=== PATIENT | female | born 1985 | race Caucasian/White ===

== ENCOUNTER 2016-06-14 16:54 | Observation (INO) ==
--- NOTE | 2016-06-14 17:36 | OB/GYN Progress Note ---
Date of Encounter: 06/14/16 Time of Encounter: 17:29 - Assessment and Plan (1) 23 weeks gestation of Current Visit: Yes Status: Acute Admit for observation (2) Left flank pain Current Visit: Yes Status: Acute R/O kidney stones (3) Hematuria Current Visit: Yes Status: Acute r/o kidney stone UTI evaluation Subjective - Subjective Principal diagnosis: Left flank pain, abdominal cramping Interval history: Patient is a 30 y/o female @ 23w2d presents to labor and delivery with c/o lower abdomen and left flank pain. Patient denies any fevers. Patient states she had a cervical length yesterday in her OB's office that was WNL. Patient reports a history of placenta previa. Patient states yesterday previa was resolved. Patient reports +FM, denies LOF or Vaginal bleeding. Patient reports hematuria yesterday. Antepartum ROS: movement normal, no loss of fluid, no vaginal bleeding Objective - Vital Signs Vital Signs: Intake and Output 06/14/16 06/14/16 06/14/16 07:59 15:59 23:59 Other: Weight 94.7 kg Patient Weight 06/14/16 23:59 Weight 94.7 kg - Exam FHR: auscultation normal, category 1 FHR comments: 135 bpm moderate variability Auscultation: bilateral: normal Abdomen: Present: normal appearance, soft, gravid Uterus: Present: normal
[2016-06-14] MEDS: Ringers Solution, Lactated 1,000 ML IVC SCH ×2 (17:42→22:41)
[2016-06-14 19:16] LABS: Bilirubin,Urine Negative (Negative); Blood,Urine Large (Negative); Clarity,Urine Cloudy (Clear); Color,Urine Yellow (Yellow); Glucose,Urine (UA) Normal (Normal); Ketones,Urine 15 mg/dL (Negative); Leukocyte Esterase,Urine Small (Negative); Nitrite,Urine Negative (Negative); Protein,Urine 100 mg/dL (Neg-Trace); Specific Gravity,Urine 1.023 (1.010-1.025); Urobilinogen,Urine Normal (Normal)
[2016-06-14 19:19] LABS: Bacteria,Urine Many per hpf (None-Few); Hyaline Casts,Urine None Seen per lpf (None-Few); Squamous Epithelial Cell,Urine Many per lpf (None-Few)
[2016-06-14] MEDS ORDERED: *HR* HYDROcodone/Acet 5/325 mg TABLET PO PRN (19:25)
[2016-06-14 22:17] LABS: Basophils % 0.1 %; Eosinophils # 0.2 K/mcL (0.0-0.6); Eosinophils % 1.4 %; Hematocrit 36.4 % (35.3-44.9); Hemoglobin 12.2 g/dL (11.5-15.4); Immature Granulocytes % 0.7 % (0-4); Lymphocytes # 1.3 K/mcL (0.6-4.6); Mean Corpuscular HGB Conc 33.5 g/dL (31.6-35.5); Mean Corpuscular Volume 89.7 fL (83.0-100.0); Mean Platelet Volume 11.7 fL (9.4-12.4); Monocytes # 0.9 K/mcL (0.0-1.3); Monocytes % 8.8 %; Platelet Count 261 K/mcL (140-400); Red Blood Count 4.06 M/mcL (3.82-4.97)
[2016-06-14 22:26] LABS: Alanine Aminotransferase 19 Units/L (0-55); Aspartate Amino Transferase 20 Units/L (5-34); BUN/Creatinine Ratio 11 (6-26); Blood Urea Nitrogen 6 mg/dL (7-20); Lactate Dehydrogenase 278 Units/L (159-327); Uric Acid 3.5 mg/dL (2.6-6.0); eGFR For African Americans > 60 (> 60); eGFR For Non-African Americans > 60 (> 60)
[2016-06-14] MEDS ORDERED: *HR* Nalbuphine 20 MG/ML AMPUL IVP PRN (22:26)
--- NOTE | 2016-06-14 22:41 | OB/GYN Progress Note ---
Date of Encounter: 06/14/16 Time of Encounter: 22:39 - Assessment and Plan (1) 23 weeks gestation of Current Visit: Yes Status: Acute Admit for observation (2) Left flank pain Current Visit: Yes Status: Acute R/O kidney stones No stones noted on ultrasound (3) Hematuria Current Visit: Yes Status: Acute r/o kidney stone UTI evaluation +UTI 2 grams Rocephin IV, D/C with RX for Macrobid (4) UTI (urinary tract infection) in in second trimester Current Visit: Yes Status: Acute IV Rocephin RX for macrobid. (5) Asymptomatic hypertension Current Visit: Yes Status: Acute PIH labs ordered. Subjective - Subjective Principal diagnosis: UTI Interval history: Patient reports pain has returned and feels the pain in her back. Patient now has elevated BPs. PIH labs were drawn and sent to lab. Will give Nubain 10mg IVP x1 for pain. [facility] report reviewed. RX given for Macrobid and [place] for 2 [address] Report given to Dr. Gale. Antepartum ROS: movement normal, no loss of fluid, no vaginal bleeding, no contractions Objective - Vital Signs Vital Signs: Intake and Output 06/14/16 06/14/16 06/14/16 07:59 15:59 23:59 Other: Weight 94.7 kg Patient Weight 06/14/16 23:59 Weight 94.7 kg - Exam Abdomen: Present: normal appearance, soft, gravid Uterus: Present: normal, firm - Labs Labs: Abnormal lab results BUN 6 mg/dL (7-20) L 06/14/16 17:36 Creatinine 0.56 mg/dL (0.57-1.11) L 06/14/16 17:36 Ur Specimen Adequacy See below A 06/14/16 18:54 Urine Clarity Cloudy (Clear) A 06/14/16 18:54 Urine Protein 100 mg/dL (Neg-Trace) H 06/14/16 18:54 Urine Ketones 15 mg/dL (Negative) H 06/14/16 18:54 Urine Blood Large (Negative) H 06/14/16 18:54 Ur Leukocyte Esterase Small (Negative) H 06/14/16 18:54 Urine Microscopic RBC 5-15 per hpf (0-3) H 06/14/16 18:54 Urine Microscopic WBC 3-5 per hpf (0-3) H 06/14/16 18:54 Ur Squamous Epith Cells Many per lpf (None-Few) H 06/14/16 18:54 Urine Bacteria Many per hpf (None-Few) H 06/14/16 18:54 Ur Culture Indicated? YES (NO) A 06/14/16 18:54
== END 2016-06-14 23:24 | disposition home or self-care (01) ==
LOC: 1NENULAB
PROVIDERS: ADMIT Obstetrics & Gynecology; ATTEND Obstetrics & Gynecology

== ENCOUNTER 2016-06-16 20:32 | Observation (INO) ==
[2016-06-16 21:37] LABS: Bilirubin,Urine Small (Negative); Blood,Urine Large (Negative); Clarity,Urine Cloudy (Clear); Color,Urine Red (Yellow); Glucose,Urine (UA) Normal (Normal); Ketones,Urine 15 mg/dL (Negative); Leukocyte Esterase,Urine Large (Negative); Nitrite,Urine Positive (Negative); Protein,Urine Trace mg/dL (Neg-Trace); Specific Gravity,Urine 1.016 (1.010-1.025); Urobilinogen,Urine Normal (Normal)
[2016-06-16 21:40] LABS: Bacteria,Urine None Seen per hpf (None-Few); Hyaline Casts,Urine None Seen per lpf (None-Few); Squamous Epithelial Cell,Urine Many per lpf (None-Few); WBC,Urine 15-30 per hpf (0-3)
[2016-06-16] MEDS ORDERED: Ondansetron 4 MG/2 ML VIAL IVP PRN (23:10)
[2016-06-16] MEDS ORDERED: Ringers Solution, Lactated 500 ML IVC ONE ×2 (23:11→23:12)
[2016-06-16] MEDS ORDERED: Ringers Solution, Lactated 1,000 ML IVC SCH (23:30)
--- NOTE | 2016-06-16 23:30 | OB/GYN Progress Note ---
Date of Encounter: 06/16/16 Time of Encounter: 23:22 - Assessment and Plan (1) Nausea Current Visit: Yes Status: Acute zofran prn IVF bolus followed by continuous IVF recommend trying to stay hydrated and anti-nausea medication as needed (2) Round ligament pain Current Visit: Yes Status: Acute flexeril as needed for muscle spasm recommend support belt recommend pelvic floor training (3) 23 weeks gestation of Current Visit: No Status: Acute monitor pt monitoring IVF bolus recommend uterine support belt, trying to maintain hydration, pelvic floor exercise strengthening continue routine care Subjective - Subjective Principal diagnosis: left pelvic pain Interval history: 30 yo F presents c/o left sided pelvic/flank pain. Pain starts at left lumbar area and radiates towards groin. Pt states pain is associated with urinary hesitancy and burning sensation symptoms started Sunday. On Sunday patient presented to L&D with the same symptoms, was given fluid bolus which seemed to improve her symptoms. Sunday she was also worked up for UTI, Hydronephrosis , labs and imaging were negative at that time. Pt states she felt better yesterday and then started having pain again today. She states she is also having some nausea. She denies vision change, CP, SOB. Antepartum ROS: other (left pelvic pain) Objective - Vital Signs Vital Signs: Intake and Output 06/16/16 06/16/16 06/16/16 07:59 15:59 23:59 Other: Weight 92.987 kg Patient Weight 06/16/16 23:59 Weight 92.987 kg - Exam FHR: auscultation normal Abdomen: Present: normal appearance, soft, gravid Uterus: Present: normal - Labs Labs: Abnormal lab results Urine Color Red (Yellow) A 06/16/16 21:15 Urine Clarity Cloudy (Clear) A 06/16/16 21:15 Urine Ketones 15 mg/dL (Negative) H 06/16/16 21:15 Urine Blood Large (Negative) H 06/16/16 21:15 Urine Nitrite Positive (Negative) A 06/16/16 21:15 Urine Bilirubin Small (Negative) H 06/16/16 21:15 Ur Leukocyte Esterase Large (Negative) H 06/16/16 21:15 Urine Microscopic RBC 3-5 per hpf (0-3) H 06/16/16 21:15 Urine Microscopic WBC 15-30 per hpf (0-3) H 06/16/16 21:15 Ur Squamous Epith Cells Many per lpf (None-Few) H 06/16/16 21:15 Ur Culture Indicated? YES (NO) A 06/16/16 21:15
--- NOTE | 2016-06-17 06:03 | OB Labor Progress Note ---
Date of Encounter: 06/17/16 Time of Encounter: 06:02 Labor Progress Note - Subjective Subjective: Pt now reports the pain is 0/10 and feels much better. Thinks the Flexeril and hydration helped. - Heart Tones Heart Tones: 150's - Interventions Interventions: S/p Flexeril x 1 and IVF - Plan Plan: Will d/c home
--- NOTE | 2016-06-17 06:05 | Discharge Summary ---
Outpatient Proc Discharge Plan - Plan Prescriptions: Cyclobenzaprine [Flexeril] 10 mg PO BID PRN #20 tablet PRN Reason: Muscle Spasm Home Medications: Aspirin 81 mg PO DAILY 05/07/16 [History] Loperamide HCl [Imodium A-D] 2 mg PO DAILY 05/07/16 [History] HYDROcodone/Acet 5/325 mg [Henriette 5-325 mg] 1 tab PO Q4H PRN #12 tab 06/14/16 [Rx ] Nitrofurantoin (BID) [Macrobid] 100 mg PO BID #14 capsule 06/14/16 [Rx] Cyclobenzaprine [Flexeril] 10 mg PO BID PRN #20 tablet 06/17/16 [Rx]
== END 2016-06-17 06:10 | disposition home or self-care (01) ==
LOC: 1NENULAB
PROVIDERS: ADMIT Obstetrics & Gynecology; ATTEND Obstetrics & Gynecology

== ENCOUNTER 2016-08-03 19:55 | Observation (INO) ==
[2016-08-03 16:44] LABS: Basophils % 0.1 %; Eosinophils # 0.1 K/mcL (0.0-0.6); Hematocrit 33.4 % (35.3-44.9); Hemoglobin 11.4 g/dL (11.5-15.4); Immature Granulocytes % 0.7 % (0-4); Lymphocytes # 1.4 K/mcL (0.6-4.6); Lymphocytes % 11.5 %; Mean Corpuscular HGB Conc 34.1 g/dL (31.6-35.5); Mean Corpuscular Hemoglobin 29.5 pg (28.0-33.3); Mean Corpuscular Volume 86.5 fL (83.0-100.0); Mean Platelet Volume 10.8 fL (9.4-12.4); Monocytes # 1.1 K/mcL (0.0-1.3); Monocytes % 9.2 %; Neutrophils # 9.1 K/mcL (1.6-8.9); Platelet Count 258 K/mcL (140-400); Red Blood Count 3.86 M/mcL (3.82-4.97); Red Cell Distribution Width 12.9 % (11.5-14.5); Segmented Neutrophils % 77.5 %
[2016-08-03 16:58] LABS: Alanine Aminotransferase 21 Units/L (0-55); Aspartate Amino Transferase 15 Units/L (5-34); BUN/Creatinine Ratio 13 (6-26); Blood Urea Nitrogen 8 mg/dL (7-20); Lactate Dehydrogenase 161 Units/L (159-327); Uric Acid 2.4 mg/dL (2.6-6.0); eGFR For African Americans > 60 (> 60); eGFR For Non-African Americans > 60 (> 60)
--- NOTE | 2016-08-03 17:54 | OB/GYN Progress Note ---
Date of Encounter: 08/03/16 Time of Encounter: 17:37 - Assessment and Plan (1) Headache in , antepartum Current Visit: Yes Status: Acute Obtain PIH labs, Fioricet for headache, if PIH labs negative and headache resolves plan to discharge to home Qualifiers: Trimester: third trimester Qualified Code(s): O26.893 - Other specified related conditions, third trimester; R51 - Headache (2) 30 weeks gestation of Current Visit: Yes Status: Acute (3) NST (non-stress test) reactive Current Visit: Yes Status: Acute baseline 135 Subjective - Subjective Interval history: 30-year-old sent over from the office today with complaints of headache for the last 2 days not relieved by Tylenol, new onset visual disturbances, and elevated blood pressures. In triage, patient's states headache is 6/10, but denies any blurry vision right upper quadrant pain or excessive's edema at this time. Patient reports good movement but denies leaking of fluid or vaginal bleeding or other vaginal discharge. Antepartum ROS: movement normal, contractions (occasional braxon peña at night. ), no loss of fluid, no vaginal bleeding Objective - Vital Signs Vital Signs: Intake and Output 08/03/16 08/03/16 08/03/16 07:59 15:59 23:59 Other: Weight 97.8 kg Patient Weight 08/03/16 23:59 Weight 97.8 kg - Exam FHR: category 1 (baseline 135) Auscultation: bilateral: normal Abdomen: Present: normal appearance, soft, gravid - Labs Labs: Abnormal lab results WBC 11.7 K/mcL (4.3-11.1) H 08/03/16 16:30 Hgb 11.4 g/dL (11.5-15.4) L 08/03/16 16:30 Hct 33.4 % (35.3-44.9) L 08/03/16 16:30 Neutrophils # 9.1 K/mcL (1.6-8.9) H 08/03/16 16:30 Uric Acid 2.4 mg/dL (2.6-6.0) L 08/03/16 16:30
[2016-08-03 18:06] LABS: Protein/Creatinine Ratio,Urine 0.31 mg/mg (0-0.20)
--- NOTE | 2016-08-03 19:25 | OB/GYN History & Physical ---
Date of Encounter: 08/03/16 Time of Encounter: 19:20 Assessment and Plan (1) Headache in , antepartum Current visit: Yes Status: Acute PIH labs were normal except with the exception of the P/C urine ratio was 0.31. Discussed patient with Dr. Baumann decision made to admit for observation for collection of 24-hour urine due to elevated diastolic pressures, P/c ratio and elevated diastolic pressures ranging from 85-90 Admit to unit for observation Regular diet encourage increased by mouth fluid intake Collect 24-hour urine Tylenol and Fioricet for headache pain management Every shift NST Every 4 hours vitals and neuro checks Ambien for sleep as needed Qualifiers: Trimester: third trimester Qualified Code(s): O26.893 - Other specified related conditions, third trimester; R51 - Headache (2) 30 weeks gestation of Current visit: Yes Status: Acute (3) NST (non-stress test) reactive Current visit: Yes Status: Acute History of Present Illness HPI: Ms. Berg is a 30 year old female sent over from the office today with complaints of headache for the last 2 days not relieved by Tylenol, new onset visual disturbances, and elevated blood pressures. In triage, patient's states headache is 6/10, but denies any blurry vision right upper quadrant pain or increase in edema at this time. Patient reports good movement but denies leaking of fluid or vaginal bleeding or other vaginal discharge. complicated by earlier placenta previa which is now resolved, elevated 1 hour GTT but normal three-hour glucose test and MTHFR. Fioricet given to patient in triage earlier has reduce headache to 3/10. Labs: O-, All PIH was negative with the exception of P\C ratio was 0.31 Past Med Surg Social Fam HX - Past Medical History Medical history: no medical history Psychiatric history: no psych history - Past Surgical History Surgical History: appendectomy, cholecystectomy - Social History Smoking Status: Never smoker Smokeless Tobacco Status: No Alcohol use: none Drug use: none - Family History Father Adopted: No Family Member Ethnicity: Non- Living Status: Still Living Hx Family Cardiac Disorders: No Hx Family Respiratory Disorders: No Hx Family Cancer: No Hx Family GI Disorders: No Hx Family Genitourinary Disorders: No Hx Family Endocrine Disorder: No Hx Family Musculoskeletal Disorders: No Hx Family Neuromuscular Disorders: No Hx Family Neurologic Disorders: No Hx Family HEENT Disorders: No Hx Family Autoimmune Disorders: No Hx Family Reproductive Disorders: No Hx Family Psychosocial Disorders: No Hx Family Medical Disorders: No Obstetrical History - Pregnancies : 6 Para: 2 Term: 2 : 0 Ab's: 3 Livin Medications and Allergies Aspirin 81 mg PO DAILY 05/07/16 [History] Loperamide HCl [Imodium A-D] 2 mg PO DAILY 05/07/16 [History] Allergies No Known Allergies Allergy (Verified 05/07/16 15:43) Review of System OB All systems PM: reviewed and no additional remarkable complaints except as stated Exam - Constitutional Constitutional: well developed, well nourished, no acute distress - Neck Neck exam: full ROM - Lungs Respiratory exam: CTAB - Cardiovascular Cardiovascular exam: RRR, +S1, +S2 - Breasts Breast: bilateral: normal - Abdomen Abdomen: Present: bowel sounds normal, gravid, non tender - Extremities Extremities exam: normal capillary refill, normal inspection Deep Tendon Reflex Grade: 2+ Normal Results Result Diagrams: 08/03/16 16:30 08/03/16 16:30 Abnormal lab results WBC 11.7 K/mcL (4.3-11.1) H 08/03/16 16:30 Hgb 11.4 g/dL (11.5-15.4) L 08/03/16 16:30 Hct 33.4 % (35.3-44.9) L 08/03/16 16:30 Neutrophils # 9.1 K/mcL (1.6-8.9) H 08/03/16 16:30 Uric Acid 2.4 mg/dL (2.6-6.0) L 08/03/16 16:30 Protein/Creatinin Ratio 0.31 mg/mg (0-0.20) H 08/03/16 17:50 Urine Total Protein 38 mg/dL (1-14) H 08/03/16 17:50 All other labs normal. - VTE Reasons for not Prescribing Prophylaxis: Treatment not Indicated - Low risk for VTE
[~2016-08-03 19:55] MED LIST: Acetaminophen 325 MG TABLET PO PRN; Acetaminophen/Butalbital/CaffeineTABLET PO PRN
[2016-08-03] MEDS: Acetaminophen/Butalbital/CaffeineTABLET PO PRN (20:38)
[2016-08-04] MEDS ORDERED: Aspirin 81 MG TAB.CHEW PO SCH (09:00)
[2016-08-04] MEDS ORDERED: Ondansetron ODT 4 MG TAB.RAPDIS SL PRN (09:04)
[2016-08-04] MEDS: Acetaminophen/Butalbital/CaffeineTABLET PO PRN (15:01)
[2016-08-04 15:41] VITALS: BP 130/85
--- NOTE | 2016-08-04 17:31 | Discharge Summary ---
Date of Encounter: 08/04/16 Time of Encounter: 17:31 - Discharge Diagnosis (1) Proteinuria affecting in third trimester Priority: Primary Status: Acute Comments: 24 hour urine collected after having and elevated random P/C ratio (2) Hypertension affecting in third trimester Priority: Secondary Status: Acute Comments: BP's WNL without medication Patient to follow up in office next week (3) 30 weeks gestation of Priority: Secondary Status: Acute Comments: admitted for observation (4) Headache in , antepartum Priority: Secondary Status: Acute Comments: headache relieved with Fioricet Qualifiers: Trimester: third trimester Qualified Code(s): O26.893 - Other specified related conditions, third trimester; R51 - Headache (5) NST (non-stress test) reactive Priority: Secondary Status: Acute Comments: RNST baseline 145bpm moderate variability +15x15 accels no decels noted. - Discharge Medications Prescriptions: Acetaminophen/Butalbital/Caffe [Fioricet] 1 each PO Q6HR PRN #30 tablet PRN Reason: Headache Zolpidem [Ambien] 10 mg PO HS PRN #30 tablet PRN Reason: Insomnia Home Medications: Aspirin 81 mg PO DAILY 05/07/16 [History] Loperamide HCl [Imodium A-D] 2 mg PO DAILY 05/07/16 [History] Acetaminophen/Butalbital/Caffe [Fioricet] 1 each PO Q6HR PRN #30 tablet [Rx] Zolpidem [Ambien] 10 mg PO HS PRN #30 tablet 08/04/16 [Rx] Allergies/Adverse Reactions: Allergies No Known Allergies Allergy (Verified 05/07/16 15:43) Data Procedures and tests throughout hospitalization: Laboratory Tests 08/03/16 08/03/16 08/03/16 16:30 16:30 17:50 WBC 11.7 H RBC 3.86 Hgb 11.4 L Hct 33.4 L MCV 86.5 MCH 29.5 MCHC 34.1 RDW 12.9 Plt Count 258 MPV 10.8 Immature Gran % 0.7 Seg Neutrophils % 77.5 Lymphocytes % 11.5 Monocytes % 9.2 Eosinophils % 1.0 Basophils % 0.1 Neutrophils # 9.1 H Lymphocytes # 1.4 Monocytes # 1.1 Eosinophils # 0.1 Basophils # 0.0 BUN 8 Creatinine 0.60 Est GFR ( Amer) > 60 Est GFR (Non-Af Amer) > 60 BUN/Creatinine Ratio 13 Uric Acid 2.4 L AST 15 ALT 21 Lactate Dehydrogenase 161 Urine Creatinine 123 Protein/Creatinin Ratio 0.31 H Urine Total Protein 38 H Labs on day of discharge: Labs from last 24 hours 08/03/16 17:50 Urine Creatinine 123 Protein/Creatinin Ratio 0.31 H Urine Total Protein 38 H Date of admission: 08/03/16 16:15 Primary care physician: Heather Simms Discharging clinician: Maddi Amaro Anticipated date of discharge: 08/04/16 - Patient Status Disposition: Home, Self-Care Condition: Good Functional capacity at discharge: independent ambulation - Discharge Instructions Follow Up With: Heather Calles MD [Primary Care Provider] - Maddi Amaro CNM [Non-Partnered Physician] - - Diet and Activity Activity: increase activity as tolerated Diet: regular diet Hospital Course [employer]MI[employer] Hospital course: Patient was admitted for OBservation at 30w3d for elevated BP, proteinuria in and headache. Patient completed and 24 hour urine and BP's are WNL. NSTs were reactive and patient will follow up in 1 week in OB office. Patient educated on signs and symptoms of PIH and what to report to provider. Time Attestation: Total time spent providing and/or coordinating discharge services: Time Spent: Less than 30 minutes Exam - Constitutional Vitals: Temp Pulse Resp BP Pulse Ox 97.9 F 85 18 130/85 98 08/04/16 15:40 08/04/16 15:40 08/04/16 15:40 08/04/16 15:40 08/04/16 12:17 General appearance IM: A&O X 3, pleasant, answers questions appropriately - Respiratory Respiratory exam: Present: CTAB - Cardiovascular Cardiovascular exam IM: Present: RRR, +S1, +S2 - GI/Abdominal GI/Abdominal exam IM: normal bowel sounds - Extremities Exam Extremities exam IM: Present: full ROM, normal capillary refill, normal inspection - Neurological Exam Neurological exam: alert, oriented X3, reflexes normal - Other Additional findings: NST reactive. FHR 145 bpm baseline, +15x15 accels no decels noted. CAt. 1 tracing. No contractions - VTE Reasons for not Prescribing Prophylaxis: Treatment not Indicated - Low risk for VTE Documentation of Mechanical Device: Intermittent pneumatic compression device
[2016-08-04 17:48] LABS: Total Volume 24 Hour,Urine 1.45 Liters (0.60-1.60)
[2016-08-04 18:01] LABS: Creatinine 24 Hour,Urine 1.25 g/day (0.71-1.65); Protein/Creatinine Ratio,Urine 0.17 mg/mg (0-0.20)
== END 2016-08-04 17:15 | disposition home or self-care (01) ==
LOC: 1NENULAB → 1NENUOBS 19:55

== ENCOUNTER → 2016-08-10 18:50 | Observation (INO) ==
[2016-08-10 16:48] LABS: Basophils % 0.1 %; Eosinophils # 0.1 K/mcL (0.0-0.6); Eosinophils % 0.6 %; Hematocrit 37.4 % (35.3-44.9); Hemoglobin 12.7 g/dL (11.5-15.4); Immature Granulocytes % 0.6 % (0-4); Immature Platelets 8.3 % (1.1-6.1); Lymphocytes # 0.9 K/mcL (0.6-4.6); Lymphocytes % 9.1 %; Mean Corpuscular Hemoglobin 28.7 pg (28.0-33.3); Mean Corpuscular Volume 84.6 fL (83.0-100.0); Monocytes # 1.2 K/mcL (0.0-1.3); Monocytes % 11.8 %; Neutrophils # 7.9 K/mcL (1.6-8.9); Platelet Count 284 K/mcL (140-400); Red Blood Count 4.42 M/mcL (3.82-4.97); Red Cell Distribution Width 13.1 % (11.5-14.5); Segmented Neutrophils % 77.8 %
[2016-08-10 17:00] LABS: Alanine Aminotransferase 29 Units/L (0-55); Aspartate Amino Transferase 20 Units/L (5-34); BUN/Creatinine Ratio 16 (6-26); Blood Urea Nitrogen 12 mg/dL (7-20); Lactate Dehydrogenase 187 Units/L (159-327); Uric Acid 4.6 mg/dL (2.6-6.0); eGFR For African Americans > 60 (> 60); eGFR For Non-African Americans > 60 (> 60)
--- NOTE | 2016-08-10 18:06 | Discharge Summary ---
Date of Encounter: 08/10/16 Time of Encounter: 18:06 - Discharge Diagnosis (1) Hypertension affecting in third trimester Priority: Primary Status: Acute Comments: PIH evaluation WNL Patient scheduled to follow up in office 1 week (2) NST (non-stress test) reactive Priority: Secondary Status: Acute Comments: baseline 135 bpm moderate variability +15x15 accels no decels noted. - Discharge Medications Home Medications: Aspirin 81 mg PO DAILY 05/07/16 [History] Loperamide HCl [Imodium A-D] 2 mg PO DAILY 05/07/16 [History] Acetaminophen/Butalbital/Caffe [Fioricet] 1 each PO Q6HR PRN #30 tablet [Rx] Zolpidem [Ambien] 10 mg PO HS PRN #30 tablet 08/04/16 [Rx] Allergies/Adverse Reactions: Allergies No Known Allergies Allergy (Verified 05/07/16 15:43) Data Procedures and tests throughout hospitalization: Laboratory Tests 08/10/16 08/10/16 16:33 16:33 WBC 10.2 RBC 4.42 Hgb 12.7 Hct 37.4 MCV 84.6 MCH 28.7 MCHC 34.0 RDW 13.1 Plt Count 284 MPV 11.0 Immature Gran % 0.6 Seg Neutrophils % 77.8 Lymphocytes % 9.1 Monocytes % 11.8 Eosinophils % 0.6 Basophils % 0.1 Neutrophils # 7.9 Lymphocytes # 0.9 Monocytes # 1.2 Eosinophils # 0.1 Basophils # 0.0 Immature Plt Fraction 8.3 H BUN 12 Creatinine 0.74 Est GFR ( Amer) > 60 Est GFR (Non-Af Amer) > 60 BUN/Creatinine Ratio 16 Uric Acid 4.6 AST 20 ALT 29 Lactate Dehydrogenase 187 Labs on day of discharge: Labs from last 24 hours 08/10/16 08/10/16 16:33 16:33 WBC 10.2 RBC 4.42 Hgb 12.7 Hct 37.4 MCV 84.6 MCH 28.7 MCHC 34.0 RDW 13.1 Plt Count 284 MPV 11.0 Immature Gran % 0.6 Seg Neutrophils % 77.8 Lymphocytes % 9.1 Monocytes % 11.8 Eosinophils % 0.6 Basophils % 0.1 Neutrophils # 7.9 Lymphocytes # 0.9 Monocytes # 1.2 Eosinophils # 0.1 Basophils # 0.0 Immature Plt Fraction 8.3 H BUN 12 Creatinine 0.74 Est GFR ( Amer) > 60 Est GFR (Non-Af Amer) > 60 BUN/Creatinine Ratio 16 Uric Acid 4.6 AST 20 ALT 29 Lactate Dehydrogenase 187 Date of admission: 08/10/16 16:15 Primary care physician: Heather Simms Discharging clinician: Maddi Amaro Anticipated date of discharge: 08/10/16 - Patient Status Disposition: Home, Self-Care Condition: Good Functional capacity at discharge: independent ambulation - Discharge Instructions Follow Up With: Heather Calles MD [Primary Care Provider] - Maddi Amaro CNM [Non-Partnered Physician] - - Diet and Activity Activity: increase activity as tolerated Diet: regular diet Hospital Course [employer] Hospital course: Patient is 30 y/o @ 31w3d sent from OB office for PIH evaluation for elevated BP. PIH labs WNL, 2+DTRs no clonus. Patient denies Headache but reports visual disturbances after vomiting. BPs in L&D are WNL. Time Attestation: Total time spent providing and/or coordinating discharge services: Time Spent: Less than 30 minutes Exam - Constitutional General appearance IM: A&O X 3, pleasant, answers questions appropriately - Respiratory Respiratory exam: Present: CTAB - Cardiovascular Cardiovascular exam IM: Present: RRR, +S1, +S2 - GI/Abdominal GI/Abdominal exam IM: normal bowel sounds - Neurological Exam Neurological exam: alert, oriented X3, reflexes normal - Other Additional findings: FHR 135 bpm moderate variability +15x15 accels no decels noted. No contractions. RNST. Cat 1 tracing. - VTE Reasons for not Prescribing Prophylaxis: Treatment not Indicated - Low risk for VTE
[~2016-08-10 18:50] MED LIST changes: -Acetaminophen 325 MG TABLET PO PRN; -Acetaminophen/Butalbital/CaffeineTABLET PO PRN; +D5% in 0.45% NACL 1,000 ML IVC SCH
== END | disposition home or self-care (01) ==
LOC: 1NENULAB
PROVIDERS: ADMIT Advanced Practice Midwife

== ENCOUNTER → 2016-09-14 19:26 | Observation (INO) ==
[2016-09-14 17:07] LABS: Basophils % 0.2 %; Eosinophils # 0.1 K/mcL (0.0-0.6); Eosinophils % 0.8 %; Hematocrit 32.6 % (35.3-44.9); Hemoglobin 10.8 g/dL (11.5-15.4); Immature Granulocytes % 0.5 % (0-4); Lymphocytes # 1.2 K/mcL (0.6-4.6); Lymphocytes % 10.8 %; Mean Corpuscular HGB Conc 33.1 g/dL (31.6-35.5); Mean Corpuscular Hemoglobin 27.4 pg (28.0-33.3); Mean Corpuscular Volume 82.7 fL (83.0-100.0); Mean Platelet Volume 11.5 fL (9.4-12.4); Monocytes # 0.9 K/mcL (0.0-1.3); Monocytes % 8.2 %; Neutrophils # 8.7 K/mcL (1.6-8.9); Platelet Count 249 K/mcL (140-400); Red Blood Count 3.94 M/mcL (3.82-4.97); Red Cell Distribution Width 13.2 % (11.5-14.5); Segmented Neutrophils % 79.5 %
[2016-09-14 17:43] LABS: Protein/Creatinine Ratio,Urine 0.14 mg/mg (0-0.20)
[2016-09-14 17:45] LABS: Alanine Aminotransferase 20 Units/L (0-55); Aspartate Amino Transferase 15 Units/L (5-34); BUN/Creatinine Ratio 12 (6-26); Blood Urea Nitrogen 7 mg/dL (7-20); Lactate Dehydrogenase 181 Units/L (159-327); Uric Acid 3.6 mg/dL (2.6-6.0); eGFR For African Americans > 60 (> 60); eGFR For Non-African Americans > 60 (> 60)
--- NOTE | 2016-09-14 19:05 | Discharge Summary ---
Date of Encounter: 09/14/16 Time of Encounter: 19:06 - Discharge Diagnosis (1) 36 weeks gestation of Priority: Secondary Status: Acute Comments: Patient arrives to labor and delivery triage for a PI evaluation. She had increased blood pressure and trace protein in her urine at the office. She states positive movement and denies headache, epigastric pain, and vision changes. She notes that her blood pressure has been increasing to 140's/90's in the afternoon daily and that she has a headache when this occurs. PI labs sent; WNL Serial blood pressures; Elevated blood pressure noted at 140's/low 100's. One dose of IV labetalol given. Blood pressure responded well to normal limits. Increase labetalol from 100mg BID to 100mg TID. Discharge home with blood pressure monitoring, change in labetalol frequency, labor precautions, hypertension precautions, and kick counts. Follow up in office on Sunday for NST. (2) Hypertension affecting in third trimester Priority: Primary Status: Acute Comments: [facility] labs sent; WNL Serial blood pressures; Elevated blood pressure noted at 140's/low 100's. One dose of IV labetalol given. Blood pressure responded well to normal limits. Increase labetalol from 100mg BID to 100mg TID. Discharge home with blood pressure monitoring, change in labetalol frequency, labor precautions, hypertension precautions, and kick counts. Follow up in office on Sunday for NST. (3) NST (non-stress test) reactive Priority: Secondary Status: Acute Comments: baseline 120 category I 15x15 accels - Discharge Medications Prescriptions: Labetalol [Trandate] 100 mg PO TID #90 tablet Home Medications: Aspirin 81 mg PO DAILY 05/07/16 [History] Acetaminophen/Butalbital/Caffe [Fioricet] 1 each PO Q6HR PRN #30 tablet [Rx] Zolpidem [Ambien] 10 mg PO HS PRN #30 tablet 08/04/16 [Rx] Labetalol [Trandate] 100 mg PO TID #90 tablet 09/14/16 [Rx] Allergies/Adverse Reactions: Allergies No Known Allergies Allergy (Verified 05/07/16 15:43) Data Procedures and tests throughout hospitalization: Laboratory Tests 09/14/16 09/14/16 09/14/16 16:25 16:25 17:20 WBC 11.0 RBC 3.94 Hgb 10.8 L Hct 32.6 L MCV 82.7 L MCH 27.4 L MCHC 33.1 RDW 13.2 Plt Count 249 MPV 11.5 Immature Gran % 0.5 Seg Neutrophils % 79.5 Lymphocytes % 10.8 Monocytes % 8.2 Eosinophils % 0.8 Basophils % 0.2 Neutrophils # 8.7 Lymphocytes # 1.2 Monocytes # 0.9 Eosinophils # 0.1 Basophils # 0.0 BUN 7 Creatinine 0.59 Est GFR ( Amer) > 60 Est GFR (Non-Af Amer) > 60 BUN/Creatinine Ratio 12 Uric Acid 3.6 AST 15 ALT 20 Lactate Dehydrogenase 181 Urine Creatinine 115 Protein/Creatinin Ratio 0.14 Urine Total Protein 16 H Labs on day of discharge: Labs from last 24 hours 09/14/16 09/14/16 09/14/16 17:20 16:25 16:25 WBC 11.0 RBC 3.94 Hgb 10.8 L Hct 32.6 L MCV 82.7 L MCH 27.4 L MCHC 33.1 RDW 13.2 Plt Count 249 MPV 11.5 Immature Gran % 0.5 Seg Neutrophils % 79.5 Lymphocytes % 10.8 Monocytes % 8.2 Eosinophils % 0.8 Basophils % 0.2 Neutrophils # 8.7 Lymphocytes # 1.2 Monocytes # 0.9 Eosinophils # 0.1 Basophils # 0.0 BUN 7 Creatinine 0.59 Est GFR ( Amer) > 60 Est GFR (Non-Af Amer) > 60 BUN/Creatinine Ratio 12 Uric Acid 3.6 AST 15 ALT 20 Lactate Dehydrogenase 181 Urine Creatinine 115 Protein/Creatinin Ratio 0.14 Urine Total Protein 16 H Date of admission: 09/14/16 15:55 Primary care physician: Heather Simms Discharging clinician: Ratna Chowdhury Anticipated date of discharge: 09/14/16 - Patient Status Disposition: Home, Self-Care Condition: Good Functional capacity at discharge: independent ambulation Overall status at discharge: patient is back to baseline - Discharge Instructions Follow Up With: Heather Calles MD [Primary Care Provider] - Monik Hayes CNM [Non-Partnered Physician] - Additional Instructions: LABOR AND DELIVERY DISCHARGE INSTRUCTIONS Signs and Symptoms to be Reported to your Doctor Immediately: * Sudden gush, continuous or intermittent lead of fluid from vagina (note the time of gush and color of fluid) * Onset of bright red vaginal bleeding with or without pain (if you had a vaginal exam during this visit you may notice some dark red spotting. This is normal.) * Lower abdominal cramping or backache that is premenstrual-like feeling. * More than 6 contractions in one hour. * Burning during urination, having to urinate more frequently or pain in your mid-back. * A change in the baby's activity. This could be an increase or decrease in activity. * Severe headache which does not go away with tylenol. * Sudden swelling in the face, hands, arms and/or legs. * Upper abdominal pain - sometimes associated with heartburn or nausea and is not relieved by Maalox, Mylanta or Tums. * Dizziness or blurred vision or visual disturbances (seeing stars/lights). * Kick Counts One hour after a meal, lay down on one side in a quiet place. Count the number of ronald the baby moves during an hour. If less than 6 movements, notify your physician. Diet: *Force fluids - 8-10 tall glasses of fluid per day. May include popsicles and jello. *Limit caffeine - this includes chocolate, coffee, tea, any soft drink containing such as all richar, Gabe Yellow and Mountain Dew - Diet and Activity Activity: resume usual activities as tolerated Diet: regular diet Hospital Course [employer] Time Attestation: Total time spent providing and/or coordinating discharge services: Time Spent: Less than 30 minutes Exam - Constitutional General appearance IM: cooperative, A&O X 3, pleasant - Respiratory Respiratory exam: Present: CTAB - Cardiovascular Cardiovascular exam IM: Present: RRR, +S1, +S2 - GI/Abdominal GI/Abdominal exam IM: normal bowel sounds, soft - Additional comments: Gravid uterus soft no contractions per TOCO or palpation FHTs 120's with moderate variability with 15x15 accels no decels TOCO no contractions NST reactive; category I tracing - Extremities Exam Extremities exam IM: Present: normal capillary refill, normal inspection, radial pulses palpable and symetrical - Neurological Exam Neurological exam: alert, oriented X3 - VTE Reasons for not Prescribing Prophylaxis: Treatment not Indicated - Low risk for VTE
[~2016-09-14 19:26] MED LIST changes: +*HR* Labetalol 20 MG/4 ML SYRINGE IVP ONE; -D5% in 0.45% NACL 1,000 ML IVC SCH
== END | disposition home or self-care (01) ==
LOC: 1NENULAB
PROVIDERS: ADMIT Advanced Practice Midwife

== ENCOUNTER 2016-09-25 22:09 | Inpatient (IN) ==
[~2016-09-25 22:09] MED LIST changes: -*HR* Labetalol 20 MG/4 ML SYRINGE IVP ONE; +Famotidine 20 MG/2 ML VIAL IVP PRN; +Naloxone 0.4 MG/ML INJ IVP PRN; +Ondansetron 4 MG/2 ML VIAL IVP PRN
[2016-09-25] MEDS ORDERED: Ringers Solution, Lactated 1,000 ML IVC SCH (22:15)
--- NOTE | 2016-09-25 22:22 | OB/GYN History & Physical ---
Date of Encounter: 09/25/16 Time of Encounter: 22:14 Assessment and Plan (1) 38 weeks gestation of Current visit: Yes Status: Acute Patient admitted for delivery (2) Spontaneous rupture of membranes Current visit: Yes Status: Acute Admitted for delivery (3) Heterozygous MTHFR mutation [id number] Current visit: Yes Status: Acute (4) Hypertension affecting in third trimester Current visit: No Status: Acute PIH labs Serial BP's History of Present Illness Chief complaint: SROM HPI: Ms. Berg is a 31 year old female is a at 38 weeks gestational age presents to labor and delivery with c/o spontaneous rupture of membranes at 1845. Patient reports clear fluid without odor. Patient denies feeling contractions or vaginal bleeding. Patient reports +FM. Blood type: O Negative and GBS: Negative. Past Med Surg Social Fam HX - Past Medical History Source: patient Medical history: no medical history Psychiatric history: no psych history - Past Surgical History Surgical History: appendectomy, cholecystectomy - Social History Smoking Status: Never smoker Smokeless Tobacco Status: No Alcohol use: none Drug use: none Occupational status: employed Current living situation: Home - Independent Activity Level: Independent ambulation Recent Out of Country Travel Within the Last 8 Weeks: No Exposure or Possible Exposure to Illness During Travel: No - Family History Father Adopted: No Family Member Ethnicity: Non- Living Status: Still Living Hx Family Cardiac Disorders: Yes Hx Family Respiratory Disorders: No Hx Family Cancer: No Hx Family GI Disorders: No Hx Family Endocrine Disorder: No Hx Family Neuromuscular Disorders: No Hx Family Neurologic Disorders: No Hx Family HEENT Disorders: No Hx Family Autoimmune Disorders: No Obstetrical History - Pregnancies : 6 Para: 2 Term: 2 : 0 Ab's: 3 Livin - History/Complications History/Complications: Gestational hypertension with current on 100mg labetalol TID MTHFR Medications and Allergies Aspirin 81 mg PO DAILY 05/07/16 [History] Acetaminophen/Butalbital/Caffe [Fioricet] 1 each PO Q6HR PRN #30 tablet [Rx] Zolpidem [Ambien] 10 mg PO HS PRN #30 tablet 08/04/16 [Rx] Labetalol [Trandate] 100 mg PO TID #90 tablet 09/14/16 [Rx] Allergies No Known Allergies Allergy (Verified 01/08/17 15:43) Review of System OB - Constitutional Constitutional ROS IM: headache(s) (slight headache today), no chills, no fever( s) - Cardiovascular Cardiovascular: pedal edema, no chest pain, no dyspnea, no palpitations - Respiratory Respiratory: no cough, no dyspnea - Gastrointestinal Gastrointestinal: cramping, no constipation, no diarrhea, no heartburn, no nausea, no vomiting - Genitourinary Genitourinary: vaginal discharge, no abnormal vaginal bleeding, no dysuria, no flank pain, no urinary frequency, no urinary incontinence, no vaginal odor Exam - Constitutional Constitutional: well developed, well nourished, no acute distress, average body habitus - HEENT HEENT: Normocephaly, Mucus Membranes Moist - Neck Neck exam: full ROM, supple - Lungs Respiratory exam: CTAB - Cardiovascular Cardiovascular exam: RRR, +S1, +S2 - Abdomen Abdomen: Present: bowel sounds normal, gravid, non tender - Extremities Extremities exam: calf tenderness, full ROM, normal inspection, pedal edema (1+ bilateral feet) Deep Tendon Reflex Grade: 2+ Normal - Vagina Vagina: Present: normal moisture - Cervix Dilation: 3 Effacement: 80 Station: -1 - Uterus Uterus exam: Present: normal size, normal contour - Anus/Rectum Anus/Rectum: Present: normal perianal skin - Comments Comments: FHR 145 bpm moderate variability +15x15 accels no decels noted. One contraction noted. Cat. 1 tracing. Results All other labs normal. - VTE Reasons for not Prescribing Prophylaxis: Treatment not Indicated - Low risk for VTE
[2016-09-25] MEDS ORDERED: miSOPROStol 100 MCG TABLET PO SCH (22:30)
[2016-09-25 22:51] LABS: Basophils % 0.1 %; Eosinophils # 0.1 K/mcL (0.0-0.6); Eosinophils % 0.8 %; Hematocrit 32.6 % (35.3-44.9); Hemoglobin 10.7 g/dL (11.5-15.4); Immature Granulocytes % 0.6 % (0-4); Immature Platelets 6.3 % (1.1-6.1); Lymphocytes # 1.4 K/mcL (0.6-4.6); Lymphocytes % 12.3 %; Mean Corpuscular HGB Conc 32.8 g/dL (31.6-35.5); Mean Corpuscular Hemoglobin 26.9 pg (28.0-33.3); Mean Corpuscular Volume 81.9 fL (83.0-100.0); Mean Platelet Volume 11.2 fL (9.4-12.4); Monocytes % 8.9 %; Neutrophils # 8.7 K/mcL (1.6-8.9); Platelet Count 292 K/mcL (140-400); Red Blood Count 3.98 M/mcL (3.82-4.97); Red Cell Distribution Width 13.3 % (11.5-14.5); Segmented Neutrophils % 77.3 %
[2016-09-25 23:07] LABS: Alanine Aminotransferase 17 Units/L (0-55); Aspartate Amino Transferase 15 Units/L (5-34); BUN/Creatinine Ratio 15 (6-26); Blood Urea Nitrogen 9 mg/dL (7-20); Lactate Dehydrogenase 164 Units/L (159-327); Uric Acid 3.1 mg/dL (2.6-6.0); eGFR For African Americans > 60 (> 60); eGFR For Non-African Americans > 60 (> 60)
[2016-09-26] MEDS ORDERED: *HR* Nalbuphine 20 MG/ML AMPUL IVP PRN (00:12)
--- NOTE | 2016-09-26 00:12 | OB Labor Progress Note ---
Date of Encounter: 09/26/16 Time of Encounter: 00:09 Labor Progress Note - Subjective Subjective: Patient resting in bed. Denies any pain at this time. Patient reports still leaking clear fluid and +FM. - Cervix Cervix: 3/80/-1 - Heart Tones Heart Tones: 120 bpm moderate variability +15x15 accels no decels noted. - [place]: irregular - Interventions Interventions: SVE - Plan Plan: Continue labor management Cytotec 50mcg po x1 only Dr. Baumann notified of patient's status Patient may have nubain or epidural if desires
[2016-09-26] MEDS ORDERED: *HR* FentaNYL (PF) 100 MCG/2 ML VIAL EP ONE (01:20)
[2016-09-26] MEDS ORDERED: EPHEDrine 50 MG/ML VIAL IVP PRN (01:20)
[2016-09-26] MEDS ORDERED: Bupivacaine-MPF 0.25% 10 ML VIAL EP ONE (01:20)
[2016-09-26] MEDS ORDERED: Ondansetron 4 MG/2 ML VIAL IVP PRN (01:20)
--- NOTE | 2016-09-26 01:23 | Anesthesia Evaluation PreOp ---
Date of Encounter: 09/26/16 Time of Encounter: 01:21 - Past History Planned Operation: ANNETTA Cardiac History: HTN (takes labatolol) Pulmonary History: Denies Any Significant HX INTRAOPERATIVE NEURO TECH History: Denies Any Significant HX Other Medical History: Bleeding (MTHFR- takes ASA) Anesthesia History: No Prior Anesthetic Complications, Past Anesthesia (Breast reduction, Appendectomy, D&C, cholecystectomy) : Yes Alcohol Use: none Drug use: none Medications and Allergies Labetalol [Trandate] 100 mg PO TID #90 tablet 09/14/16 [Rx] Allergies No Known Allergies Allergy (Verified 09/25/16 22:34) - Meds/Allergy Pre-op Review Medications Reviewed: Yes Allergies Reviewed: Yes Beta Blockers on Current Med List: Yes If Beta Blockers taken, Date/Time (Last Dose taken): 1999, 09/25/16 Anesthesia Results - Labs 09/25/16 22:35 09/25/16 22:35 Anesthesia Exam Vital Signs Pulse Rate 86 09/25/16 22:19 Respiratory Rate 18 09/25/16 22:19 Blood Pressure 137/93 09/25/16 22:19 Pulse Rate 86 09/25/16 22:19 Respiratory Rate 18 09/25/16 22:19 Blood Pressure 137/93 09/25/16 22:19 Height: 5'9" Weight: 97kg NPO (# of Hours): 6 Pain Scale: 8 Pain Scale Used: Numeric (1 - 10) - HEENT Pupil (Motor): Pupils equal Mallampati: II Teeth: Normal Oral Opening: Greater than 3 - INTRAOPERATIVE NEURO TECH INTRAOPERATIVE NEURO TECH Motor: Normal RUE, Normal LUE, Normal RLE, Normal LLE, Normal Face INTRAOPERATIVE NEURO TECH Sensory: Normal: RUE, LUE, RLE, LLE, Face - Cardiac Rhythm: Regular Murmur: None JVD: No Carotid Bruit: No - Pulmonary Breath Sounds: bilateral Clear Respiratory Effort: Symmetrical Anesthesia Assess/Plan ASA Score: 2 Modified [place] Scale for Level of Consciousness: Cooperative, oriented, and tranquil Anesthetic Plan: Regional Autologous Blood: No Monitoring Plan: Standard Monitors Recovery Plan: Other
[2016-09-26] MEDS ORDERED: Epidural Premix (fent/bupiv) 110 ML EP SCH (01:30)
[2016-09-26] MEDS ORDERED: *HR* FentaNYL (PF) 100 MCG/2 ML VIAL ONE (01:32)
[2016-09-26] MEDS ORDERED: Bupivacaine-MPF 0.25% 10 ML VIAL ONE (01:33)
[2016-09-26] MEDS ORDERED: Epidural Premix (fent/bupiv) 110 ML EP ONE (01:33)
--- NOTE | 2016-09-26 02:02 | Anesthesia Procedures ---
Date of Encounter: 09/26/16 Time of Encounter: 01:36 Procedures: Anesthesia - Epidural/Spinal Patient ID/Chart reviewed: Yes Patient examined: Yes OB Eval: Gestational age: 38.1 OB Eval: : 6 OB Eval: Hx Para: 2 OB Eval: Dilated at (cm): 3 OB Eval: Contractions: Non-stressed pattern Consent Obtained: Yes Supplemental Oxygen: None/Room Air Site Prep: Aseptic Technique, Sterile prep and drape, Povidone-Iodine 1% Patient position: upright Local Anesthetic: Lidocaine 1% Amount of Local Anesthetic used: 3 Touhy Needle Gauge: 18 Touhy Needle Depth (cm): 6 Catheter Depth at Skin (cm): 15 Test Dose (1.5% Lido + Epi): Volume given (mls): 3 Test Dose Result: Negative Loading Dose: 0.25% Marcaine (mls): 10 Loading Dose: Fentanyl (mcg): 100 Loading Dose Administered: Thru Catheter Infusion Med: 0.125% Bupivacaine w/ 2 mcg/ml Fentanyl Infusion Rate (mls/hr): [address]: Tegaderm, Tape Interspace Used: L4-L5 Loss of Resistance (UMU): Yes Blood: No CSF: No Paresthesia: No Procedure: ANNETTA placed 1st pass in upright position without any immediate noted complications. VSS throughout. Vitals + FHT's: 0136 BP 133/86 P 88 T98.5 0158 BP 129/81 P 82 FHT 130s
[2016-09-26] MEDS ORDERED: Acetaminophen 325 MG TABLET PO PRN ×2 (03:43→09:50)
[2016-09-26] MEDS ORDERED: Oxytocin 20 units/ LR 1000 mL 20 UNIT/1,000 ML BAG IVC ONE (05:09)
--- NOTE | 2016-09-26 07:03 | OB/GYN Procedure Note ---
Delivery - Delivery Date: 09/26/16 Provider: Maddi Amaro Intrapartum events: none Delivery induction: misoprostol (augmented with PO cytotec) Delivery monitor: external FHT, external uterine Anesthesia: epidural Estimated Blood Loss: 200 - Infant (s) A Infant Delivery Date: 09/26/16 Infant Delivery Time: 06:36 Presentation: vertex Position: CARLYLE Route of delivery: Gender: Female Viability: Viable at 1 minute: 8 at 5 mins: 9 Specimens collected: cord blood Placenta: spontaneous Cord: nuchal cord (x1 loose), 3 umbilical vessels, delivered through nuchal - Repair Episiotomy: none Laceration Description: Perineal - 1st Degree (repaired with 3-0 vicryl) - Complications Delivery complications: none - Disposition Mom disposition: stable in LDR Maxie disposition: stable in LDR - Comments Comments: CNM in room to check on patient. Patient reports low abdominal pain. SVE Complete +2 station. Patient was prepped for delivery. Under maternal effort patient began pushing and spontaneously delivered female CARLYLE. Nuchal x1 loose and reduced. No shoulder dystocia or meconium noted. was placed on maternal abdomen. Cord was clamped and cut after pulsation ceased. A 1st degree perineal laceration noted and was repaired with 3-0 vicryl. Placenta delivered spontaneously and intact. placed skin to skin. Both Mother and infant are stable in recovery. weight was not yet assessed at this time.
[2016-09-26] MEDS ORDERED: Measles/Mumps/Rubella Vacc 0.5 ML VIAL SQ PRN (09:50)
[2016-09-26] MEDS ORDERED: Oxytocin 20 units/ LR 1000 mL 20 UNIT/1,000 ML BAG IVC SCH (09:50)
[2016-09-26] MEDS ORDERED: Benzocaine/Menthol 56 GM AEROSOL SPRAY TP PRN (09:50)
[2016-09-26] MEDS ORDERED: Rho Immune Globulin 1,500 UNIT SYRINGE IM PRN (09:50)
[2016-09-26] MEDS ORDERED: Lanolin 7 G OINT...G. TP PRN (09:50)
[2016-09-26] MEDS ORDERED: *HR* HYDROcodone/Acet 5/325 mg TABLET PO PRN (09:50)
[2016-09-26] MEDS: Prenatal Vit/FA 1 EACH TABLET PO SCH (10:22)
[2016-09-26] MEDS: Ibuprofen 600 MG TABLET PO PRN ×2 (10:29→20:46)
[2016-09-27 04:04] LABS: Basophils % 0.1 %; Eosinophils # 0.1 K/mcL (0.0-0.6); Eosinophils % 1.1 %; Hematocrit 31.9 % (35.3-44.9); Hemoglobin 10.5 g/dL (11.5-15.4); Immature Granulocytes % 0.6 % (0-4); Lymphocytes # 1.6 K/mcL (0.6-4.6); Lymphocytes % 13.1 %; Mean Corpuscular HGB Conc 32.9 g/dL (31.6-35.5); Mean Corpuscular Hemoglobin 27.3 pg (28.0-33.3); Mean Corpuscular Volume 82.9 fL (83.0-100.0); Mean Platelet Volume 11.6 fL (9.4-12.4); Monocytes # 0.9 K/mcL (0.0-1.3); Monocytes % 7.4 %; Neutrophils # 9.3 K/mcL (1.6-8.9); Platelet Count 242 K/mcL (140-400); Red Blood Count 3.85 M/mcL (3.82-4.97); Red Cell Distribution Width 13.4 % (11.5-14.5); Segmented Neutrophils % 77.7 %
[2016-09-27 04:19] LABS: Alanine Aminotransferase 16 Units/L (0-55); Aspartate Amino Transferase 16 Units/L (5-34); BUN/Creatinine Ratio 8 (6-26); Lactate Dehydrogenase 199 Units/L (159-327); Uric Acid 3.2 mg/dL (2.6-6.0); eGFR For African Americans > 60 (> 60); eGFR For Non-African Americans > 60 (> 60)
[2016-09-27 04:23] LABS: Blood Urea Nitrogen 5 mg/dL (7-20)
--- NOTE | 2016-09-27 07:32 | Discharge Summary ---
Date of Encounter: 09/27/16 Time of Encounter: 07:29 - Discharge Diagnosis (1) 38 weeks gestation of Priority: Secondary Status: Acute (2) Spontaneous rupture of membranes Priority: Secondary Status: Acute (3) Heterozygous MTHFR mutation C677T Priority: Secondary Status: Acute (4) Hypertension affecting in third trimester Priority: Secondary Status: Acute Comments: 1 week nurse visit for BP check (5) Vaginal delivery Priority: Primary Status: Acute Comments: Continue routine care discharge home today follow up in 4-6 weeks with NIGEL Linda (6) Breast feeding status of mother Priority: Secondary Status: Acute Comments: support prn - Discharge Medications Prescriptions: Ibuprofen [Motrin] 600 mg PO Q6HR PRN #60 tablet PRN Reason: Cramping Breast Pump [BREAST PUMP] 1 each .ROUTE AD #1 each Docusate [Colace] 100 mg PO BID #60 capsule Home Medications: Labetalol [Trandate] 100 mg PO TID #90 tablet 09/14/16 [Rx] Breast Pump [BREAST PUMP] 1 each .ROUTE AD #1 each 09/27/16 [Rx] Docusate [Colace] 100 mg PO BID #60 capsule 09/27/16 [Rx] Ibuprofen [Motrin] 600 mg PO Q6HR PRN #60 tablet 09/27/16 [Rx] Vit/FA 1 each PO DAILY tablet 09/27/16 [Rx] Allergies/Adverse Reactions: Allergies No Known Allergies Allergy (Verified 09/25/16 22:34) Data Procedures and tests throughout hospitalization: Laboratory Tests 09/25/16 09/25/16 09/26/16 22:35 22:35 07:02 WBC 11.3 H RBC 3.98 Hgb 10.7 L Hct 32.6 L MCV 81.9 L MCH 26.9 L MCHC 32.8 RDW 13.3 Plt Count 292 MPV 11.2 Immature Gran % 0.6 Seg Neutrophils % 77.3 Lymphocytes % 12.3 Monocytes % 8.9 Eosinophils % 0.8 Basophils % 0.1 Neutrophils # 8.7 Lymphocytes # 1.4 Monocytes # 1.0 Eosinophils # 0.1 Basophils # 0.0 Immature Plt Fraction 6.3 H BUN 9 Creatinine 0.62 Est GFR ( Amer) > 60 Est GFR (Non-Af Amer) > 60 BUN/Creatinine Ratio 15 Uric Acid 3.1 AST 15 ALT 17 Lactate Dehydrogenase 164 Hep Bs Antigen Screen NEGATIVE Baby's Blood Type O RH POSITIVE Mother's Blood Type O RH NEGATIVE Rhogam Indicated YES Rhogam Req for Mother 1 09/26/16 09/27/16 09/27/16 07:02 03:37 03:37 WBC 12.0 H RBC 3.85 Hgb 10.5 L Hct 31.9 L MCV 82.9 L MCH 27.3 L MCHC 32.9 RDW 13.4 Plt Count 242 MPV 11.6 Immature Gran % 0.6 Seg Neutrophils % 77.7 Lymphocytes % 13.1 Monocytes % 7.4 Eosinophils % 1.1 Basophils % 0.1 Neutrophils # 9.3 H Lymphocytes # 1.6 Monocytes # 0.9 Eosinophils # 0.1 Basophils # 0.0 Immature Plt Fraction BUN 5 L Creatinine 0.61 Est GFR ( Amer) > 60 Est GFR (Non-Af Amer) > 60 BUN/Creatinine Ratio 8 Uric Acid 3.2 AST 16 ALT 16 Lactate Dehydrogenase 199 Hep Bs Antigen Reactive H Screen Baby's Blood Type Mother's Blood Type Rhogam Indicated Rhogam Req for Mother Labs on day of discharge: Labs from last 24 hours 09/27/16 09/27/16 09/26/16 03:37 03:37 07:02 WBC 12.0 H RBC 3.85 Hgb 10.5 L Hct 31.9 L MCV 82.9 L MCH 27.3 L MCHC 32.9 RDW 13.4 Plt Count 242 MPV 11.6 Immature Gran % 0.6 Seg Neutrophils % 77.7 Lymphocytes % 13.1 Monocytes % 7.4 Eosinophils % 1.1 Basophils % 0.1 Neutrophils # 9.3 H Lymphocytes # 1.6 Monocytes # 0.9 Eosinophils # 0.1 Basophils # 0.0 BUN 5 L Creatinine 0.61 Est GFR ( Amer) > 60 Est GFR (Non-Af Amer) > 60 BUN/Creatinine Ratio 8 Uric Acid 3.2 AST 16 ALT 16 Lactate Dehydrogenase 199 Hep Bs Antigen Reactive H Screen Baby's Blood Type Mother's Blood Type Rhogam Indicated Rhogam Req for Mother 09/26/16 07:02 WBC RBC Hgb Hct MCV MCH MCHC RDW Plt Count MPV Immature Gran % Seg Neutrophils % Lymphocytes % Monocytes % Eosinophils % Basophils % Neutrophils # Lymphocytes # Monocytes # Eosinophils # Basophils # BUN Creatinine Est GFR ( Amer) Est GFR (Non-Af Amer) BUN/Creatinine Ratio Uric Acid AST ALT Lactate Dehydrogenase Hep Bs Antigen Screen NEGATIVE Baby's Blood Type O RH POSITIVE Mother's Blood Type O RH NEGATIVE Rhogam Indicated YES Rhogam Req for Mother 1 Date of admission: 09/25/16 22:09 Primary care physician: Heather Simms Consults: 09/26/16 09:50 Consult to [employer] Admin [CONS] Routine Comment: Vaginal delivery, consult needed Discharging clinician: Maddi Amaro Anticipated date of discharge: 09/27/16 - Patient Status Disposition: Home, Self-Care Condition: Good Functional capacity at discharge: independent ambulation - Discharge Instructions Follow Up With: Heather Calles MD [Primary Care Provider] - Maddi Amaro CNM [Non-Partnered Physician] - - Diet and Activity Activity: increase activity as tolerated Diet: regular diet Hospital Course Reason for admission: rupture of membranes Delivery: Episiotomy: none Laceration: 1st degree Other procedures: none complications: none Discharge diagnosis: IUP at term delivered baby: female (breast feeding) Time Attestation: Total time spent providing and/or coordinating discharge services: Time Spent: Less than 30 minutes Exam - Constitutional Vitals: Temp Pulse Resp BP Pulse Ox 97.6 F 75 16 121/84 98 09/27/16 03:50 09/27/16 05:14 09/27/16 05:14 09/27/16 03:50 09/27/16 03:50 General appearance IM: A&O X 3, pleasant, answers questions appropriately - Respiratory Respiratory exam: Present: CTAB - Cardiovascular Cardiovascular exam IM: Present: RRR, +S1, +S2 - GI/Abdominal GI/Abdominal exam IM: normal bowel sounds - Uterine Tone: Firm Uterus Position: 2 Fingers Below Umbilicus, Midline - Extremities Exam Extremities exam IM: Present: full ROM, normal capillary refill, normal inspection - Neurological Exam Neurological exam: alert, oriented X3, reflexes normal
[2016-09-27] MEDS: Prenatal Vit/FA 1 EACH TABLET PO SCH (09:00)
[2016-09-27 09:33] VITALS: BP 125/84
== END 2016-09-27 09:50 | disposition home or self-care (01) | DRG 775 ==
LOC: 1NENULAB → 1NENUOBS 09-26 09:18
PROVIDERS: ADMIT Advanced Practice Midwife; ATTEND Advanced Practice Midwife